=== PATIENT | male | born 1975 | race Caucasian/White ===

== ENCOUNTER 2016-07-08 13:29 | Emergency (ER) | payer MEDICAID ==
[2014-11-15 03:08] VITALS: BMI 23.6
[~2016-07-08 13:29] MED LIST: ADDERALL 20 MG20 M1 PO; CELEXA20 MG PO; ELIQUIS2.5 MG PO; PERCOCET 10/3251 TA1 PO; XANAX1 MG PO; ZESTRIL10 MG PO
== END 2016-07-08 15:00 | disposition left against medical advice (07) ==
LOC: D.ER 13:29
DX: K08.89 Other specified disorders of teeth and supporting structures (principal)